=== PATIENT | female | born 1940 | race Caucasian/White ===

== ENCOUNTER 2020-07-17 06:34 | Day surgery (SDC) | payer OTHER, BC ==
--- NOTE | 2020-07-12 13:54 | RAD REPORT ---
EXAM DESCRIPTION: RAD - Chest Pa And Lat (2 Views) - 07/12/2020 1:44 pm CLINICAL HISTORY: left heart cath, preop chest exam COMPARISON: Two view chest November 2016 TECHNIQUE: Frontal and lateral views of the chest were obtained. FINDINGS: The lungs are clear of a mass or focal infiltrate. No acute failure or volume overload. I nterstitial markings are prominent but not clearly different. No evidence for progressive fibrosis, s uperimposed edema or infiltrate. Heart size is normal and central vasculature is within normal limits . No pleural effusion or pneumothorax seen. No acute bony finding noted. Prominent scoliosis limon es are present and stable. No acute aortic finding. IMPRESSION: No acute cardiopulmonary process. Patient has chronic interstitial pattern is similar to the 2017 study.
[2020-07-12 14:07] LABS: Absolute Lymphocytes (CBC) 3.9 K/uL (0.7-4.9); Basophils % 0.8 % (0-1.3); Hematocrit 38.9 % (36.0-45.0); Lymphocytes % 47.4 % (15.3-44.8); MPV 10.2 fL (7.6-11.3); RBC Red Blood Cell Count 4.57 M/uL (3.86-4.86)
[2020-07-12 14:13] LABS: Potassium 4.4 mmol/L (3.5-5.1)
[2020-07-12 14:19] LABS: Protime INR 0.95
--- OUTSIDE RECORDS SUMMARY | 2020-07-17 06:36 | XMS REPORT | Continuity of Care Document ---
:[address] [facility] t Address [address] [place] [address] Dr. Mcadams [address] [place] [id number] Care Team Providers Name Role Phone Unavailable Unavailable Unavailable Problems This patient has no known problems. Allergies, Adverse Reactions, Alerts This patient has no known allergies or adverse reactions. Medications This patient has no known medications. Procedures This patient has no known procedures. Results This patient has no known results.
[2020-07-17] MEDS ORDERED: HEPA 1000U/500MLS 1,000 UNIT/500 ML BAG IV ONE (06:48)
[2020-07-17] MEDS ORDERED: LIDOCAINE 1% 20 ML MDV ONE (06:48)
[2020-07-17] MEDS ORDERED: NA CHLORIDE 0.9% 500 ML ONE (07:05)
[2020-07-17] MEDS ORDERED: ATROPINE SULF 1 MG/10 ML SYR IV ONE (07:28)
[2020-07-17] MEDS ORDERED: NA CHLORIDE 0.9% 50 ML ONE (07:28)
[2020-07-17] MEDS ORDERED: FENTANYL CITR 100 MCG/2 ML ONE (07:28)
[2020-07-17] MEDS ORDERED: MIDAZOLAM HCL 2 MG/2 ML INJ ONE ×2 (07:28→07:41)
[2020-07-17] MEDS ORDERED: NITROGLYCERIN 100 MCG/ML SYR (for cath lab use only) IV ONE (08:04)
[2020-07-17] MEDS ORDERED: NITROGLYCERIN/D5W 25 MG/250 ML BTL IV ONE (08:04)
[2020-07-17] MEDS ORDERED: PRASUGREL (EFFIENT) 10 MG TAB ONE (08:06)
[2020-07-17] MEDS ORDERED: ASPIRIN 325 MG TAB ONE (08:07)
[2020-07-17 09:15] VITALS: TEMP 97.2
[2020-07-17 17:58] VITALS: BP 128/54; O2SAT 97
--- NOTE | 2020-07-17 19:56 | OP ---
Surgeon: Joe Martinez MD Evp Strategy: Heather Contreras. The plan is to keep her in the hospital for about 8 hours to monitor her. Angio-Seal was used to neil se the case. We will hydrate her while she is at bedrest with 70 cc per hour of normal saline. If s he does well later on tonight, I will send her home and I will see her in the office in 2 weeks. Procedures: Left heart catheterization, selective coronary arteriogram, angioplasty and stent of the mid LAD. Indication: Coronary artery disease, unstable angina and positive stress test. Procedure In Detail: Ms. Quezada is 80. I saw her in the office with chest pain. She has multiple cardiac risk factors for heart disease. A stress test was abnormal, brought to the crown and bridge dental lab technician today, p repped and draped in routine sterile fashion, given Versed and fentanyl for sedation. Using the Seld kristy technique and 10 cc of xylocaine, we introduced a 6-Eritrean sheath in the right common femoral a rtery successfully. JL4 catheter was used to cannulate the left main. She had a normal circ. Her L AD showed a very severe 80 to 90% stenosis from the first septal to all the way to passes to the firs t diagonal. She had a 50% stenosis in the RCA after using a JR4 to select the right main. A decisio n was made to intervene with her LAD. An XB LAD 3.5 with side hole was used to cannulate the left ma in successfully. A Cordova wire 0.014 was used to cannulate the lesion and passed the lesion successf ully. A 2.5 x 15 Emerge balloon compliant was used to dilate the lesion throughout the length of it from the first septal, the first diagonal. Maximum dilatation was 11 atmosphere. Following that, a 2.5 x 28 Synergy stent was placed and covered the entire lesion with 0% residual. This was inflated to 11 atmospheres. All the branches of the septal and diagonal remain intact. There were no complic ations. No chest pain. No arrhythmias. The patient tolerated the procedure well. Blood Loss: 5 mL. Anesthesia: Total conscious sedation was 60 minutes. The patient received Effient 60 mg. She received aspirin at unknown dose. She received Angiomax dur ing the procedure. Final Diagnosis: Coronary artery disease, severe, status post successful angioplasty and stent of th e mid LAD. She has a 50% RCA stenosis that we will watch and treat medically. When she goes home, s he will go home on her home medication plus Plavix. She will double her statins. CHIVO/MYRANDA Voice ID: [id number] Report ID: [id number]
--- NOTE | 2020-07-20 13:32 | EKG ---
Test Date: 2020-07-17 Test Time: 14:12:30 Swat Team Member: SERGIO MEASUREMENT RESULTS: Intervals: Rate: 86 FL: 170 QRSD: 92 QT: 386 QTc: 461 [place]: P: 59 FL: 170 QRS: 42 T: 26 INTERPRETIVE STATEMENTS: Normal sinus rhythm Normal ECG Compared to ECG 12/02/2010 15:32:34 No significant changes Electronically Signed On 07-20-20 13:28:35 ROAD ADVISOR by Joe Martinez
== END 2020-07-17 17:58 | disposition home or self-care (01) ==
LOC: CCL 06:34
DX: I25.110 Atherosclerotic heart disease of native coronary artery with unstable angina pectoris (principal); I10 Essential (primary) hypertension; E11.9 Type 2 diabetes mellitus without complications; R00.2 Palpitations; E78.2 Mixed hyperlipidemia; K21.9 Gastro-esophageal reflux disease without esophagitis; Z88.2 Allergy status to sulfonamides; Z20.822 Contact with and (suspected) exposure to COVID-19; Z82.49 Family history of ischemic heart disease and other diseases of the circulatory system
CPT/HCPCS: 93005; 85025; 80048; 36415; 85610; 82947 ×2; 85347 ×2; 85730; 71046; 93454; U0002; C1893; C1760; C1725; C1877; C9600; J2250 ×2; J3010; J0583; J7040; J1644

== ENCOUNTER 2023-04-28 05:57 | Observation (INO) | payer OTHER, BC ==
[2023-04-26 10:57] LABS: Absolute Lymphocytes (CBC) 2.3 K/uL (0.7-4.9); Hematocrit 38.8 % (36.0-45.0); Lymphocytes % 32.4 % (15.3-44.8); MCV 84.1 fL (80-100); MPV 10.6 fL (7.6-11.3); Platelets 238 thou/uL (152-406); RBC Red Blood Cell Count 4.61 M/uL (3.86-4.86)
[2023-04-26 11:04] LABS: Protime INR 0.91
[2023-04-26 11:09] LABS: Potassium 4.1 mEq/L (3.5-5.1)
--- NOTE | 2023-04-26 18:05 | EKG ---
Test Date: 2023-04-26 Test Time: 09:42:28 Steam Engineer: JOHN MEASUREMENT RESULTS: Intervals: Rate: 61 MA: 164 QRSD: 94 QT: 428 QTc: 430 [place]: P: 57 MA: 164 QRS: 49 T: 60 INTERPRETIVE STATEMENTS: Normal sinus rhythm Normal ECG Compared to ECG 07/17/2020 14:12:30 No significant changes Electronically Signed On 04-26-23 18:04:38 CDT by Jose Lunsford
[2023-04-28] MEDS ORDERED: NA CHLORIDE 0.9% 1,000 ML ONE ×2 (06:25→10:41)
[2023-04-28] MEDS ORDERED: CEFAZOLIN SODIUM 1 GM/VIAL ONE (06:25)
[2023-04-28] MEDS ORDERED: dexAMETHasone 10 MG/ML VIAL ONE (06:56)
[2023-04-28] MEDS ORDERED: LIDOCAINE 1% MPF 5 ML VIAL ONE (06:56)
[2023-04-28] MEDS ORDERED: FENTANYL CITR 100 MCG/2 ML ONE (06:57)
[2023-04-28] MEDS ORDERED: EPINEPHRINE/PF 1 MG/ML AMP ONE (06:57)
[2023-04-28] MEDS ORDERED: KETAMINE HCL IN 0.9 % NACL 50 MG/5 ML SYRINGE IV ONE (06:57)
[2023-04-28] MEDS ORDERED: MIDAZOLAM HCL 2 MG/2 ML INJ ONE (06:57)
[2023-04-28] MEDS ORDERED: BUPIVACAINE 0.25% PF 30 ML VIAL ONE (06:58)
[2023-04-28] MEDS ORDERED: DEXMEDETOMIDINE HCL 200 MCG/2 ML VIAL ONE (06:58)
[2023-04-28] MEDS ORDERED: MAGNESIUM SULFATE 1 gm IVPB 1 GM/100 ML BAG IV ONE (06:58)
[2023-04-28] MEDS ORDERED: CELECOXIB 100 MG CAPSULE ONE (07:11)
[2023-04-28] MEDS ORDERED: GABAPENTIN 100 MG CAP ONE (07:11)
[2023-04-28] MEDS ORDERED: ACETAMINOPHEN 500 MG TAB ONE (07:12)
[2023-04-28] MEDS ORDERED: Oxycodone HCl/Acetaminophen 5/325 MG TAB ONE (07:12)
[2023-04-28] MEDS ORDERED: TRANEXAMIC ACID 1,000 MG/10 ML VIAL IV ONE (07:22)
[2023-04-28] MEDS ORDERED: LIDOCAINE 2% MPF 5 ML VIAL ONE (08:04)
[2023-04-28] MEDS ORDERED: propofoL 200 MG/20 ML VIAL IV ONE (08:04)
[2023-04-28] MEDS ORDERED: EPHEDRINE SULF 50 MG/ML VIAL ONE (08:23)
[2023-04-28] MEDS ORDERED: ONDANSETRON 4 MG/2 ML VIAL ONE (09:24)
--- NOTE | 2023-04-28 10:16 | P.BOP ---
Preoperative diagnosis: right knee osteoarthritis Postoperative diagnosis: same Primary procedure: right total knee arthroplasty Fulling Mill Operator: NONE,NONE Estimated blood loss: 40 cc Specimen: right knee bone remnants Findings: see dictation Anesthesia: General Complications: None Implants: Biomet Delmer Persona 6 Narrow femur, D tibia, 32 patella, 11 CR poly Fluids & blood products: per anesthesia record; 68 mins @ 300 mmHg Transferred to: Recovery Room Condition: Good
--- NOTE | 2023-04-28 10:19 | P.OP ---
Preoperative diagnosis: right knee osteoarthritis Postoperative diagnosis: Right knee osteoarthritis Primary procedure: right total knee arthroplasty Anesthesia: General Estimated blood loss: 40 cc Specimen: Right knee bone remnants Findings: see dictation Operative Technique: Indication For Procedure: Patient is an 83 year-old female presenting to my clinic with signs, symptoms and x-ray findings consistent with severe right knee osteoarthritis. I discussed with the patient at length risks and benefits associated with operative and nonoperative treatment. She had failed cons ervative treatment measures and had significant difficulties with ADLs secondary to her pain. We discussed operative treatment and elected to proceed with right total knee arthroplasty. She expressed understanding and elected to proceed with operative treatment. Description Of Procedure: After informed consent was obtained, the patient was identified in the preoperative holding area. The right lower extremity was marked. The patient was then taken to the PACU where she underwent a right lower extremity adductor canal block performed by Anesthesia. She was then taken to the operating room, transferred to the operating table in supine fashion, and placed under general anesthesia. The right lower extremity was then prepped and draped in usual sterile fashion. A time-out was initiated. The correct patient and procedure were confirmed and identified. The patient did receive her preoperative prophylactic antibiotics. The right lower extremity was then exsanguinated and tourniquet was inflated to 300 mmHg. Approximately 15 cm longitudinal incision was made centered over the anterior aspect of the right knee. Dissection was then taken to the extensor mechanism and a medial parapatellar arthrotomy was performed. The patella was everted and dislocated laterally and the knee was flexed in the fat pad. Medial and lateral meniscus and ACL were all excised exposing the distal femur. Excess hypertrophic synovium was also excised within the suprapatellar pouch. The patient had an MRI of her right knee preoperatively for surgical planning and creation of cutting blocks. The cutting block was then placed over the distal femur and pins were then placed. The distal femoral cutting block was then placed over the pins. An chavo wing was then used to ensure proper depth cut and the distal femur was then cut. The chamfer cutting guide was then placed over the distal end of the femur. Anterior, posterior cuts as well as anterior and posterior chamfer cuts were then made again confirming proper depth of the cut using an Chavo wing. Excess bone remnants were then sent to pathology for further evaluation. Next, attention was taken to the proximal tibia. A tibial jig and tibial cutting block was then placed on proximal aspect of the right tibia and locked into position. Pins were then placed and alignment guide was then used to confirm proper alignment of the cut and then coronal and sagittal planes. Once this was confirmed, the cutting jig was placed over the pins and the proximal tibia was cut. Sizing trays were then selected and size 10 mm spacer was used and there was good overall balance in flexion and extension. Next, the trial implants were then placed using the size 6 narrow CR femur and a size D tibia and an 11 mm CR poly. There was overall good range of motion and good stability. The trial implants were then removed. The wound was then irrigated thoroughly with normal saline and the knee was then injected with 20 cc of 0.5% Marcaine both in the posterior capsule and medial and lateral gutters as well as quadriceps tendon and periosteum. The tibia was then punched. The femur was drilled. The cement was then prepared on the back table. Cement was then placed first on the tibial surface followed by size D tibia. Excess cement was removed with Montezuma elevators. Size 6 narrow CR femur was then placed on the distal femur after cement was placed on the distal femur. Excess cement was then removed and a size 10 mm CR trial poly was then placed. The knee was held in extension as the cement hardened. Undersurface of the patella was prepared debriding osteophytes using rongeurs as well as osteophytes.. Cement was placed on the undersurface of the patella after it was cut and a size 32 patella was placed. Once the cement was hardened, the knee was ranged, there was good overall stability both in flexion, extension and as well as stability with varus and valgus stresses. Trial poly was then removed and a size 11 mm CR poly was then placed and locked into position. The knee was then ranged again. There was good overall range of motion both for flexion and extension with good stability. The wound was then irrigated again thoroughly with normal saline using pulse lavage. Tourniquet was let down. Hemostasis was achieved using Bovie electrocautery. Extensor mechanism was then approximated using a #1 Vicry l both in interrupted and running fashion. The fascia was then approximated using 0 Vicryl. Subcutaneous tissue was approximated with a 2-0 Vicryl. Skin was approximated using jaxon. Sterile dressings were applied. The patient was awakened and transferred back in stable condition Complications: None Implants: Biomet Delmer persona 6 narrow CR femur, D tibia, 32 patella, 11 CR poly Fluids & blood products: Per anesthesia record; tourniquet time 68 minutes at 300 mmHg Transferred to: Recovery Room Condition: Good
[2023-04-28] MEDS ORDERED: DOCUSATE NA 100 MG CAP PO PRN (10:21)
[2023-04-28] MEDS ORDERED: ONDANSETRON 4 MG/2 ML VIAL IV PRN (10:21)
[2023-04-28] MEDS ORDERED: HYDROCODONE/APAP 7.5/325 MG TAB PO PRN (10:21)
[2023-04-28] MEDS ORDERED: ACETAMINOPHEN 325 MG TABLET PO PRN (10:21)
[2023-04-28] MEDS ORDERED: TRAMADOL HCL 50 MG TAB PO PRN (10:24)
--- NOTE | 2023-04-28 11:24 | RAD REPORT ---
EXAM DESCRIPTION: RAD - Knee Right 2 View - 04/28/2023 10:52 am CLINICAL HISTORY: Post Op COMPARISON: Knee Right 3 View dated 05/20/2017 FINDINGS/IMPRESSION: Status post right total knee arthroplasty. No hardware complications. Expected postoperative changes in the soft tissues. No fracture. No malalignment.
[2023-04-28] MEDS: MAGNESIUM OXIDE 400 MG TAB PO SCH ×2 (13:36→21:00)
[2023-04-28] MEDS ORDERED: INFLUENZA VACCINE (for 6+ mo) 0.5 ML DOSE IMVAC ONE (14:00)
--- OUTSIDE RECORDS SUMMARY | 2023-04-28 16:11 | XMS REPORT | Continuity of Care Document ---
:1940 Author Organization [facility] t Address [address] [facility] [address] [place] [address] Care Team Providers Name Role Phone TREVA GUERRERO Primary Care Physician Unavailable Treva Guerrero Attending Clinician Unavailable GABRIEL_KENA_Cone_S Attending Clinician Unavailable KOMAL ALEGRIA Attending Clinician Unavailable Komal Madrigal Attending Clinician Doctor Unassigned, [place] Attending Clinician Unavailable GABRIEL_KENA_Cone_S Admitting Clinician Unavailable Payers Payer Name Policy Type Policy Number Effective Date Expiration Date Manju jill [place] [id number] 2004 Sigmascreening 00:00:00 [place] [id number] 2020 [place] (MEDICARE 00:00:00 SUPPLEMENT) Blue Cross Blue 6 [id number] [facility] MEDICARE PART A [id number] 2004 \T\ B 00:00:00 BCBS TRADITIONAL [id number] 2020 00:00:00 CONRAD[place] [id number] 2016 00:00:00 Problems Condition Condition Condition Status Onset Resolution Last Treating Co mments Source Name Details Category Date Date Treatment Clinician Date [id number] Primary Problem Comm on osteoarthr Spirit itis of - [facility] right knee [facility] [id number] Primary Problem Comm on osteoarthr Spirit itis of - [facility] left knee [facility] [id number] Upper Problem Common respirator Spirit y tract - [facility] infection, St unspecifie [facility] d [facility] No known No known Disease Unive rs active active ity of problems problems [facility] Allergies, Adverse Reactions, Alerts Allergy Allergy Status Severity Reaction(s) Onset Inactive Treating Comm ents Source Name Type Date Date Clinician SULFACAR DRUG Active Rash 2016-07 Univers BAMIDE INGREDI 08-02 ity of 00:00: [place] [address] Medical [place] Sulfacar Propensi Active Rash 2016-07 Univer s bamide ty to 08-02 ity of adverse 00:00: [place] reaction Medical s [place] Social History Social Habit Start Date Stop Date Quantity Comments Source History of [facility] - Tobacco Use [facility] Sex Assigned At Common Sp rk - [facility] History SDOH University o f Alcohol Frequency [facility] edical [place] History SDOH University o f Alcohol Std [place] [facility] History SDWV University o f Alcohol Binge [place] [facility] Exposure to 2022-03-07 2022-03-17 Not sure University of SARS-CoV-2 00:00:00 13:45:00 [place] [facility] (event) Branch Tobacco use and 2022-03-17 2022-03-17 Smokeless tobacco Un iversity of exposure 00:00:00 00:00:00 non-user [facility] Alcohol intake 2022-03-17 2022-03-17 Current drinker of Un iversity of 00:00:00 00:00:00 alcohol (finding) [facility] edical [place] Alcohol Comment 2017-06-02 2017-06-02 occasionally Univers ity of 00:00:00 00:00:00 [facility] Smoking Status Start Date Stop Date Source Never Smoker [facility] - [facility] Medications Ordered Filled Start Stop Current Ordering Indication Dosage Frequency Signature Comments Components Source Medication Medication Date Date Medication? Clinician (SIG) Name Name Bupivicaine Bupivicaine 2021-07 No 2.5mg Common [place] 1-15 Spirit 00:00: - [facility] Kenalog Kenalog 2021-07 No 40mg Common (Triamcinol (Triamcinol 1-15 S pirit one) one) 00:00: - [facility] Bupivicaine Bupivicaine 2021-07 No 2.5mg Common [place] 0-27 Spirit 00:00: - [facility] Kenalog Kenalog 2021-07 No 40mg Common (Triamcinol (Triamcinol 0-27 S pirit one) one) 00:00: - [facility] MELOXICAM Yes TAKE 1 Univer s 7.5 mg 4-25 TABLET BY ity of tablet 00:00: MOUTH [place] 00 DAILY Medical Branch MELOXICAM Yes TAKE 1 Univer s 7.5 mg 3-13 TABLET BY ity of tablet 00:00: MOUTH [place] 00 DAILY Medical Branch metFORMIN 2016- Yes TK 1 T PO Uni vers 500 mg 1-24 BID ity of tablet 00:00: [place] 00 Medical Branch acetaminoph 2016-07 Yes Univer s en-codeine 1-17 ity of 300-30 mg 00:00: [place] tablet 00 Medical Branch ONETOUCH 2016- Yes USE TO Univers VERIO strip 1-16 TEST BLOOD it y of 00:00: GLUCOSE [place] 00 ONCE Medical DAILY. Branch amLODIPine 2016-07 Yes TK 1 T PO Un abe 10 mg 0-31 QD ity of tablet 00:00: [place] 00 Medical Branch olmesartan- 2017 Yes TK 1 T PO U nivers hydrochloro 9-01 QD ity of thiazide 00:00: [place] 40-25 mg 00 Medical per tablet Branch amLODIPine amLODIPine No amLODIPine Besylate Besylate Besylate Vitamin D3 Vitamin D3 No Vitamin D3 PreserVisio PreserVisio No PreserVisi n AREDS 2 n AREDS 2 on AREDS 2 Magnesium Magnesium No Magnesium metFORMIN metFORMIN No metFORMIN HCl HCl HCl PriLOSEC PriLOSEC No PriLOSEC Olmesartan Olmesartan No Olmesartan Medoxomil-H Medoxomil-H Medoxomil- CTZ CTZ HCTZ Clopidogrel Clopidogrel No Clopidogre Bisulfate Bisulfate l Bisulfate Garlic Garlic No Garlic Potassium Potassium No Potassium Metoprolol Metoprolol No Metoprolol Succinate Succinate Succinate ER ER ER hydroCHLORO hydroCHLORO No hydroCHLOR thiazide thiazide Othiazide Super B Super B No Super B Complex/Vit Complex/Vit Complex/Vi sumit Hunter Benicar HCT Benicar HCT No Benicar HCT Livalo Livalo No Livalo Vital Signs Vital Name Observation Time Observation Value Comments Source height 2022-05-19 15:00:00 65 [in_i] Common [facility] weight 2022-05-19 15:00:00 168 [lb_av] [facility] temperature 2022-05-19 15:00:00 96.5 [degF] [facility] bmi 2022-05-19 15:00:00 27.95 kg/m2 Common [facility] blood pressure 2022-05-19 15:00:00 134 mm[Hg] [facility] - systolic [facility] blood pressure 2022-05-19 15:00:00 78 mm[Hg] [facility] - diastolic [facility] Systolic blood 2022-03-17 19:02:00 120 mm[Hg] Univer sity of [facility] Diastolic blood 2022-03-17 19:02:00 69 mm[Hg] Unive rsity of [facility] Heart rate 2022-03-17 19:02:00 66 /min [facility] Body height 2022-03-17 19:02:00 165.1 cm [facility] Body weight 2022-03-17 19:02:00 74.39 kg [facility] BMI 2022-03-17 19:02:00 27.29 kg/m2 [facility] Oxygen saturation in 2022-03-17 19:02:00 96 /min [facility] Arterial blood by [facility] Pulse oximetry Branch Procedures This patient has no known procedures. Encounters Start End Encounter Admission Attending Care Care Encounter Source Date/Time Date/Time Type Type Clinicians Facility Department ID 2023-01-13 Outpatient NEHEMIAS [facility] [id number] 2 Common 10:35:00 Treva 80920 [facility] 2022-12-29 Outpatient Yolanda STJONNYLC STLMLC [id number] 2 Common 13:52:02 Mouin [id number] David [facility] 2022-12-23 Outpatient Yolanda STDWAYNE STLMLC [id number] 2 Common 09:13:02 Mouin [id number] David [facility] 2022-05-19 Outpatient Yolanda STJONNYLC STLMLC [id number] 2 Common 14:53:03 Mouin [id number] David [facility] 2023-01-08 2023-01-08 Outpatient GC_SWHATBIC PRIV PRIV [id number] [facility] 00:00:00 00:00:00 _[facility]one_S [id number] Medica l 2023-01-08 2023-01-08 Outpatient GC_SWHATBIC PRIV PRIV [id number] [facility] 00:00:00 00:00:00 _[facility]one_S [id number] Medica l 2022-05-19 2022-05-19 OFFICE STDWAYNE STLC [id number] Co mmon 00:00:00 00:00:[address] [facility] LEVEL 4 [facility] 2022-03-17 2022-03-17 Outpatient Chela ALEGRIA [facility] [id number] Univers 14:05:00 23:59:00 [facility] 2022-03-17 2022-03-17 [facility] [id number] Univers 14:00:00 14:15:00 Visit [facility] [id number] it y mansoor [place] [id number] David as MAGGIE?BLEA [id number] [address] MEDICAL OFFICE BUILDING 2022-03-17 2022-03-17 Outpatient Chela ALEGRIA [facility] [id number] Univers 14:05:00 14:05:00 [facility] 2021-12-08 2021-12-08 [facility] [id number] Univers 14:30:00 14:42:50 Visit [facility] [id number] it y of [place] [id number] David as MAGGIE?BLEA [id number] Nd tawny LUCERO [address] [facility] OFFICE [facility] 2021-12-08 2021-12-08 Outpatient Chela EVELYNE [facility] [id number] Univers 14:30:00 14:42:50 KOMAL ity [facility] 2021-12-08 2021-12-08 Outpatient Chela ALEGRIA [facility] [id number] Univers 14:30:00 14:30:00 KOMAL ity [facility] 2021-12-08 2021-12-08 [facility] [id number] Univers 14:30:00 14:30:00 KOMAL ity [facility] 2021-12-02 2021-12-02 Office [facility] [id number] Univers 14:15:00 14:43:44 Visit [facility] [id number] it y of [place] [id number] David as MAGGIE?BLEA [id number] Nd tawny LUCERO [address] [place] [address] 2021-12-02 2021-12-02 [facility] [id number] Univers 14:15:00 14:43:44 KOMAL ity [facility] 2021-12-02 2021-12-02 [facility] [id number] Univers 14:15:00 14:15:00 KOMAL ity [facility] 2021-11-26 2021-11-26 Outpatient Chela EVELYNE [facility] [id number] Univers 13:30:00 14:43:03 KOMAL ity [facility] 2021-11-26 2021-11-26 Office [facility] [id number] Univers 13:30:00 14:43:03 Visit [facility] [id number] it y of [place] [id number] David as MAGGIE?BLEA [id number] Nd tawny LUCERO 198 [facility] 2021-11-26 2021-11-26 Outpatient Chela EVELYNE [facility] [id number] Univers 13:30:00 13:30:00 KOMAL ity [facility] 2021-11-26 2021-11-26 Orders Doctor CUBA [id number] Univers 00:00:00 00:00:00 Only Unassigned, [place] [id number] ity of [place] [facility] [id number] David as [phone] [address] 2021-11-18 2021-11-18 Telephone [facility] [id number] Univers 00:00:00 00:00:00 Komal S HEALTH [id number] it y of [place] [id number] David as MAGGIE?BLEA [id number] Nd tawny LUCERO [address] [place] [address] OFFICE [facility] 2021-11-12 2021-11-12 Telephone [facility] [id number] Univers 00:00:00 00:00:00 Komal S HEALTH [id number] it y of [place] [id number] David as MAGGIE?BLEA [id number] Nd tawny LUCERO [address] [place] [address] OFFICE [facility] 2021-10-17 2021-10-17 Office [facility] [id number] Univers 10:30:00 11:20:51 Visit Komal S HEALTH [id number] it y of [place] [id number] David as MAGGIE?BLEA [id number] Nd tawny LUCERO [address] [place] [address] OFFICE [facility] 2021-10-17 2021-10-17 Outpatient R EVELYNE [facility] [id number] Univers 10:30:00 11:20:51 KOMAL ity [facility] 2021-10-17 2021-10-17 Outpatient Chela ALEGRIA [facility] [id number] Univers 10:30:00 11:20:51 KOMAL ity [facility] 2021-10-17 2021-10-17 Orders Doctor BRINK [id number] Univers 00:00:00 00:00:00 Only Unassigned, [place] [id number] ity of [place] [facility] [id number] David as [id number] [place] [address] Branch 2018-09-29 2018-09-29 Outpatient Chela ALEGRIA [facility] [id number] Univers 09:15:00 09:44:00 KOMAL chapa [facility] Results This patient has no known results.
[2023-04-28] MEDS: CEFAZOLIN 1 GM in NA CHLORIDE 0.9% 50 ML IVPB SCH (17:21)
[2023-04-28] MEDS: METFORMIN HCL 500 MG TAB PO SCH (17:21)
[2023-04-28] MEDS ORDERED: GABAPENTIN 300 MG CAP PO SCH (21:00)
[2023-04-28] MEDS: METOPROLOL XL 50 MG TAB PO SCH (21:12)
[2023-04-29] MEDS: CEFAZOLIN 1 GM in NA CHLORIDE 0.9% 50 ML IVPB SCH ×2 (00:53→09:00)
[2023-04-29 03:16] LABS: Hematocrit 33.9 % (36.0-45.0)
[2023-04-29] MEDS ORDERED: ENOXAPARIN 30 MG/0.3 ML SQ SCH (06:00)
[2023-04-29] MEDS ORDERED: PANTOPRAZOLE 40MG TABLET PO SCH (06:30)
[2023-04-29] MEDS ORDERED: CLOPIDOGREL 75 MG TABLET PO SCH (09:00)
[2023-04-29] MEDS ORDERED: hydroCHLOROthiazide 25 MG TAB PO SCH (09:00)
[2023-04-29] MEDS ORDERED: AMLODIPINE 10 MG TAB PO SCH (09:00)
[2023-04-29] MEDS: MAGNESIUM OXIDE 400 MG TAB PO SCH (09:00)
[2023-04-29] MEDS ORDERED: PITAVASTATIN CALCIUM 4 MG PO SCH (09:00)
[2023-04-29] MEDS ORDERED: VALSARTAN 160 MG TAB PO SCH (09:00)
[2023-04-29] MEDS: METOPROLOL XL 50 MG TAB PO SCH (09:01)
[2023-04-29] MEDS: METFORMIN HCL 500 MG TAB PO SCH (09:02)
[2023-04-29 15:38] VITALS: BP 107/52; TEMP 98.6; O2SAT 96; BMI 27.1
== END 2023-04-29 12:47 | disposition home health service (06) ==
LOC: OR 05:57 → 2ND 10:21
PROVIDERS: ADMIT Orthopaedic Surgery Sports Medicine; ATTEND Orthopaedic Surgery Sports Medicine
PROC: 0SRC069 Replacement of Right Knee Joint with Oxidized Zirconium on Polyethylene Synthetic Substitute, Cemented, Open Approach (ICD-10-PCS; principal; 2023-04-28 08:00)
DX: M17.11 Unilateral primary osteoarthritis, right knee (principal); M25.561 Pain in right knee
CPT/HCPCS: 93005; 85025; 80048; 36415 ×3; 85610; 82947 ×4; 88304; 88311; 85730; 85018 ×2; 85014 ×2; 73560; 97110 ×2; 97116 ×2; 97139; 97161; 97530 ×2; 94010; 27447; C1776 ×2; J3475; J2704; J0171; J2001 ×2; J1650; J2250; J3010; J1100; J2405; J7030 ×2; J0690 ×4; G0378; G0379

== ENCOUNTER 2024-08-31 08:00 | Day surgery (SDC) | payer OTHER, BC ==
--- NOTE | 2024-08-30 13:09 | RAD REPORT ---
EXAMINATION: TWO VIEW CHEST XR CLINICAL INDICATION: Pre-op pending heart cath TECHNIQUE: 2 views of the chest was performed. COMPARISON: 02/02/2023 FINDINGS: The lungs are well inflated and clear. The heart is upper limit of normal in size. No displaced fract ures evident. Mild dextroscoliosis of the thoracic spine. IMPRESSION: No acute or significant abnormalities.
[2024-08-30 13:14] LABS: Absolute Basophils 0.1 K/uL (0-0.5); Absolute Eosinophils 0.2 K/uL (0-0.5); Absolute Lymphocytes (CBC) 3.3 K/uL (0.7-4.9); Absolute Monocytes 0.6 K/uL (0.1-1.3); Absolute Neutrophil 3.9 K/uL (1.8-8.0); Basophils % 0.8 % (0-1.3); Eosinophils % 2.3 % (0-4.4); Hematocrit 38.4 % (36.0-45.0); Hemoglobin 13.3 g/dL (12.0-15.0); Lymphocytes % 40.5 % (15.3-44.8); MCH 30.2 pg (27.0-35.0); MCHC 34.6 g/dL (32.0-36.0); MCV 87.3 fL (80-100); MPV 11.3 fL (7.6-11.3); Monocytes % 7.5 % (3.3-12.3); Neutrophils % 48.9 % (41.7-73.7); Platelets 209 thou/uL (152-406); Red Cell Distribution Width 14.1 % (12.1-15.2)
[2024-08-30 13:26] LABS: PT Prothrombin Time 11.3 SECONDS (10.0-13.0); PTT, Activated Partial Thromb 31.8 SECONDS (24.3-36.9); Protime INR 0.99
[2024-08-30 13:34] LABS: Anion Gap 14.8 mEq/L (5.0-15.0); Potassium 3.8 mEq/L (3.5-5.1)
[~2024-08-31 08:00] MED LIST: NA CHLORIDE 0.9% 500 ML ONE
[2024-08-31] MEDS ORDERED: HEPA 1000U/500MLS 2,000 UNIT/1,000 ML BAG IV ONE (08:41)
[2024-08-31] MEDS ORDERED: HEPARIN 10,000 UNIT/10 ML VIAL IV ONE (09:04)
[2024-08-31] MEDS ORDERED: LIDOCAINE 1% 20 ML MDV ONE (09:04)
[2024-08-31] MEDS ORDERED: HEPARIN 5000 UNIT/ML 1 ML VIAL ONE (09:05)
[2024-08-31] MEDS ORDERED: CLOPIDOGREL 75 MG TABLET ONE (09:05)
[2024-08-31] MEDS ORDERED: ATROPINE SULF 1 MG/10 ML SYR IV ONE (09:05)
[2024-08-31] MEDS ORDERED: MIDAZOLAM HCL 2 MG/2 ML INJ ONE (09:05)
[2024-08-31] MEDS ORDERED: TICAGRELOR 90 MG TABLET PO ONE (09:05)
[2024-08-31] MEDS ORDERED: ASPIRIN 325 MG TAB ONE (09:05)
[2024-08-31] MEDS ORDERED: FENTANYL CITR 100 MCG/2 ML ONE (09:06)
[2024-08-31] MEDS ORDERED: NA CHLORIDE 0.9% 500 ML ONE (10:33)
[2024-08-31 13:20] VITALS: O2SAT 99
[2024-08-31 13:45] VITALS: BP 114/71
--- NOTE | 2024-08-31 16:47 | EKG ---
Test Date: 2024-08-30 Test Time: 13:53:37 Work Order Sorting Clerk: EMILY MEASUREMENT RESULTS: Intervals: Rate: 64 HI: 164 QRSD: 100 QT: 424 QTc: 437 [place]: P: 56 HI: 164 QRS: 47 T: 58 INTERPRETIVE STATEMENTS: Normal sinus rhythm Normal ECG Compared to ECG 04/26/2023 09:42:28 No significant changes Electronically Signed On 08-31-24 16:43:54 OVERHEAD DISTRIBUTION ENGINEER by Mo Pedroza
--- NOTE | 2024-08-31 22:37 | OP ---
Date of Procedure: 08/31/2024 Surgeon: Mo Pedroza Procedures Performed: 1. Selective coronary angiogram. 2. Percutaneous coronary intervention of the right cerebral artery with Synergy 3.0 x 32 mm drug-elut ing stent. Indication For Procedure: Chest pain, abnormal stress test. Complications: None. Estimated Blood Loss: Less than 50 cc. Access: Right radial, closed by TR band. Sedation Time: 30 minutes with 1 of Versed and 50 of fentanyl. Description Of Procedure: After risks, benefits, and alternatives were explained to the patient, the patient agreed to proceed with procedure and signed informed consent. The patient was brought back to the environmental laboratory technician, prepped and draped in sterile fashion. Time-out was performed. Sedation was admini stered. Next, the right radial access was obtained using ultrasound-guided micropuncture technique. Reading 4 catheter was advanced over a J-wire into the aortic root. Selective angiogram was done usin g the same catheter. After that, that catheter was exchanged with a JR4 guide. Heparin was administ ered. ACT was therapeutic. Runthrough wire was passed across the lesions. Pre-dilated the lesion w ith NC 2.5, followed by an NC 3.0 mm balloons, followed by [place] 3.0 mm cutting balloon. After t hat, Synergy 3.0 x 32 mm drug-eluting stent was placed across the lesion and that was postdilated wit h NC 3.5 mm balloon. Final angiogram shows JULIAN-3 flow. Wire was removed. Catheter was removed ove r a J-wire. Sheath was removed. TR band was applied. Hemostasis was achieved. The patient was mov ed to recovery in stable condition. Findings: 1. Left main: Normal. 2. LAD: Proximal to mid stent patent with mid to distal 30% disease and mild luminal irregularities. 3. Left circumflex: Mild luminal irregularities. 4. RCA: Ostial 20% to 30% disease, then proximal mild luminal irregularities, followed by mid diffus e 60% to 80% disease, status post PCI as above. Then, distal mild luminal irregularities with RPDA/R PLV mild luminal irregularities. Assessment And Plan: 1. Significant mid right coronary artery disease, status post percutaneous coronary intervention with Synergy 3.0 x 32 mm drug-eluting stent. 2. Patent left anterior descending stent. Plan is to continue aspirin for life, Brilinta 180 x1 was given in the environmental laboratory technician, continue Brilinta 90 mg p.o. b.i.d. for 12 months. CARMELO Voice ID: [id number] Report ID: [id number]
== END 2024-08-31 13:55 | disposition home or self-care (01) ==
LOC: CCL 08:00
PROVIDERS: ATTEND Internal Medicine Interventional Cardiology
DX: I25.10 Atherosclerotic heart disease of native coronary artery without angina pectoris (principal); I65.21 Occlusion and stenosis of right carotid artery; I10 Essential (primary) hypertension; E11.9 Type 2 diabetes mellitus without complications; E78.2 Mixed hyperlipidemia; Z95.5 Presence of coronary angioplasty implant and graft; Z79.84 Long term (current) use of oral hypoglycemic drugs; Z79.899 Other long term (current) drug therapy; Z88.2 Allergy status to sulfonamides; Z88.8 Allergy status to other drugs, medicaments and biological substances; Z82.49 Family history of ischemic heart disease and other diseases of the circulatory system
CPT/HCPCS: 93005; 85025; 80048; 36415; 85610; 82947; 85347; 85730; 71046; 93454; 76937; C1893; Q9967; C1725; C9600; J1644; J2003; J2250; J3010; J7040 ×2; 99152; 99153; J0461